=== PATIENT | male | born 1955 | race Hispanic/Latino ===

== ENCOUNTER → 2018-10-21 | Day surgery (SDC) | payer MEDICARE ==
[~2018-10-21] MED LIST: FENTANYL CITRATE/PF 100MCG/2 ML INJ ONE; HYDROCHLOROTHIA25 MG PO; LOSARTAN POTAS100 MG PO; MIDAZOLAM HCL 2 MG/2 ML VIAL ONE; OR PHACO EYE KIT ONE; PREOP PHACO EYE KIT ONE
--- OUTSIDE RECORDS SUMMARY | 2018-10-21 10:02 | XMS REPORT ---
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 Allergies, Adverse Reactions, Alerts This patient has no known allergies or adverse reactions. Medications This patient has no known medications. Encounters Start Date/Time End Date/Time Encounter Type Admission Type Attending [facility] Care Department Encounter ID 2018-10-21 00:00:00 2018-10-21 00:00:[address] [facility] [id number] 2018-10-09 00:00:00 2018-10-09 00:00:[address] [facility] [id number] 2018-10-09 00:00:00 2018-10-09 00:00:[address] [facility] [id number] 2018-10-08 00:00:00 2018-10-08 00:00:[address] [facility] [id number] 2018-10-07 00:00:00 2018-10-07 00:00:[address] [facility] [id number] 2018-10-07 00:00:00 2018-10-07 00:00:[address] [facility] [id number] 2018-10-06 00:00:00 2018-10-06 00:00:[address] [facility] [id number] 2018-10-06 00:00:00 2018-10-06 00:00:[address] [facility] [id number] 2018-10-06 00:00:00 2018-10-06 00:00:[address] [facility] [id number] 2018-09-29 06:49:24 2018-09-29 06:49:[address] [facility] [id number] 2018-09-29 00:00:00 2018-09-29 00:00:[address] [facility] [id number] 2018-09-22 15:48:52 2018-09-22 15:48:[address] [facility] [id number] 2018-09-22 14:14:22 2018-09-22 14:14:[address] [facility] [id number] 2018-07-29 09:00:08 2018-07-29 09:00:[address] [facility] [id number] 2018-07-03 00:00:00 2018-07-03 00:00:[address] [facility] [id number] 2018-07-01 00:00:00 2018-07-01 00:00:[address] [facility] [id number] 2018-06-11 13:03:43 2018-06-11 13:03:[address] [facility] [id number] 2018-06-11 12:18:20 2018-06-11 12:18:[address] [facility] [id number] 2018-06-11 00:00:00 2018-06-11 00:00:[address] [facility] [id number] 2018-06-05 00:00:00 2018-06-05 00:00:[address] [facility] [id number] 00:00:00 2018 00:00:[address] [facility] [id number] 2018-05-13 11:10:05 2018-05-13 11:10:[address] [facility] [id number] 2018-05-12 11:41:31 2018-05-12 11:41:[address] [facility] [id number] 2018-05-12 10:43:02 2018-05-12 10:43:[address] [facility] [id number] 2018-05-12 00:00:00 2018-05-12 00:00:[address] [facility] [id number] 2018-04-18 00:00:00 2018-04-18 00:00:[address] [facility] [id number] 2017-10-14 00:00:00 2017-10-14 00:00:[address] [facility] [id number] 2017-08-21 08:22:01 2017-08-21 08:22:[address] [facility] [id number] 2017-08-13 13:21:11 2017-08-13 13:21:[address] [facility] [id number] 2017-07-02 00:00:00 2017-07-02 00:00:[address] [facility] [id number] 2017-06-27 13:57:23 2017-06-27 13:57:[address] [facility] [id number] 2017-06-26 10:37:53 2017-06-26 10:37:[address] [facility] [id number] 2017-05-16 13:14:43 2017-05-16 13:14:[address] [facility] [id number] 2017-05-01 12:58:11 2017-05-01 12:58:[address] [facility] [id number] 2017-05-01 10:17:25 2017-05-01 10:17:[address] [facility] [id number] 2017-04-26 09:52:10 2017-04-26 09:52:[address] [facility] [id number] 2017-04-24 15:06:18 2017-04-24 15:06:[address] [facility] [id number] 2017-03-25 13:40:30 2017-03-25 13:40:[address] [facility] [id number]
[2018-10-21 14:10] VITALS: BP 138/68
== END | disposition home or self-care (01) ==
LOC: OR 09:59
PROVIDERS: ATTEND Ophthalmology
DX: H25.11 Age-related nuclear cataract, right eye (principal); I10 Essential (primary) hypertension; Z87.442 Personal history of urinary calculi
CPT/HCPCS: 66984; J2250; V2632

== ENCOUNTER → 2018-10-28 | Day surgery (SDC) | payer MEDICARE ==
[2018-10-28 12:10] VITALS: BP 135/82
== END | disposition home or self-care (01) ==
LOC: OR 09:03
PROVIDERS: ATTEND Ophthalmology
DX: H25.12 Age-related nuclear cataract, left eye (principal); I10 Essential (primary) hypertension; N20.0 Calculus of kidney
CPT/HCPCS: 66984; J2250; V2632